=== PATIENT | male | born 1990 ===

== ENCOUNTER 2016-10-03 22:26 | Emergency (ER) | payer MEDICAID ==
[2016-10-03 22:26] VITALS: BMI 33.3
[2016-10-03 22:40] VITALS: BP 130/77; PULSE 88; RESP 18; TEMP 98.7; O2SAT 97
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
== END 2016-10-03 23:25 | disposition home or self-care (01) ==
LOC: H.ER 22:26
DX: L03.211 Cellulitis of face (principal)

== ENCOUNTER 2016-10-07 21:23 | Emergency (ER) | payer MEDICAID ==
[2016-10-07 21:24] VITALS: BMI 33.3
[2016-10-07 21:28] VITALS: BP 130/78; PULSE 91; RESP 16; TEMP 98.5; O2SAT 98
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
== END 2016-10-07 23:00 | disposition left against medical advice (07) ==
LOC: H.ER 21:23
DX: S09.8XXA Other specified injuries of head, initial encounter (principal); Y04.2XXA Assault by strike against or bumped into by another person, initial encounter; Y93.9 Activity, unspecified

== ENCOUNTER 2017-01-21 01:01 | Emergency (ER) | payer MEDICAID ==
[2017-01-21 01:47] VITALS: BMI 24.3
--- NOTE | 2017-01-21 01:57 | ED PDOC ---
HPI: Psych/Substance Abuse Time Seen by Provider: 01/21/17 01:15 Chief Complaint (Provider): etoh History Per: Patient, EMS Additional Complaint(s): Patient arrives to emergency department acutely intoxicated. Patient called ambulance and told them that he wasn't feeling well because he drank too much tonight. He feels slightly nauseous but denies vomiting and has no other complaints. Past Medical History Reviewed: Historical Data, Nursing Documentation, Vital Signs - Medical History PMH: No Chronic Diseases - Family History Family History: States: No Known Family Hx - Living Arrangements Living Arrangements: With Family - Social History Current smoker - smoking cessation education provided: Yes Alcohol: Social Drugs: Denies - Home Medications Home Medications: Ambulatory Orders Medication Instructions Recorded Ibuprofen [Motrin Tab] 800 mg PO TID PRN #15 tab 10/07/16 - Allergies Allergies/Adverse Reactions: Allergies Allergy/AdvReac Type Severity Reaction Status Date / Time No Known Allergies Allergy Verified 10/07/16 21:27 Review of Systems ROS Statement: Except As Marked, All Systems Reviewed And Found Negative Psych: Positive for: Other (etoh) Physical Exam - Reviewed Nursing Documentation Reviewed: Yes Vital Signs Reviewed: Yes - Physical Exam Appears: Positive for: Well, Non-toxic, No Acute Distress Skin: Negative for: Rash Eye Exam: Positive for: Normal appearance Cardiovascular/Chest: Positive for: Regular Rate, Rhythm Respiratory: Positive for: Normal Breath Sounds Neurologic/Psych: Positive for: Alert, Other (Intoxicated, answers some questions appropriately) - ECG O2 Sat by Pulse Oximetry: 96 Pulse Ox Interpretation: Normal Medical Decision Making Medical Decision Makin26 year old intoxicated male Plan: BAL Glucose POC ED observation ED OBSERVATION Date of observation admission: 01/21/17 Time of observation admission: 01:57 - Observation admission statement Patient is being placed in observation because:: Etoh intoxication - Goals of Observation Goals of observation are:: Monitor patient while acutely intoxicated, pending sobriety - Progress Note Progress Note: 01/21/17 02:13 Patient eloped from ED before treatment complete Disposition - Clinical Impression Clinical Impression: Alcohol intoxication - Patient ED Disposition Is Patient to be Admitted: No - Disposition Disposition: Left W/O Treatment (Patient left before treatment complete) Disposition Time: 02:16 Condition: UNKNOWN
[2017-01-21 02:18] VITALS: O2SAT 96
[2017-01-21 08:18] VITALS: BP 122/77; PULSE 88; RESP 18; TEMP 97.4
== END 2017-01-21 06:58 | disposition left against medical advice (07) ==
LOC: H.ER 01:01
DX: R11.0 Nausea (principal); F10.129 Alcohol abuse with intoxication, unspecified; F17.200 Nicotine dependence, unspecified, uncomplicated